=== PATIENT | male | born 1965 | race Caucasian/White ===

== ENCOUNTER 2023-08-11 13:58 | Outpatient (RCR) | payer OTHER, SELFPAY | END 2023-08-11 23:59 | disposition home or self-care (01) | LOC: RPT 13:58 | PROVIDERS: ATTENDING PHYSICIAN Physician Assistant Surgical; PRIMARYCARE PHYSICIAN Internal Medicine | DX: M25.511 Pain in right shoulder (principal); Z73.6 Limitation of activities due to disability | CPT/HCPCS: 97010; 97110; 97140 ==

== ENCOUNTER 2023-08-21 13:16 | Outpatient (RCR) | payer OTHER, SELFPAY | END 2023-08-21 23:59 | disposition home or self-care (01) | LOC: RPT 13:16 | PROVIDERS: ATTENDING PHYSICIAN Physician Assistant Surgical; PRIMARYCARE PHYSICIAN Internal Medicine | DX: Z47.1 Aftercare following joint replacement surgery (principal); M25.511 Pain in right shoulder; Z73.6 Limitation of activities due to disability; M62.81 Muscle weakness (generalized); R20.0 Anesthesia of skin; Z96.611 Presence of right artificial shoulder joint | CPT/HCPCS: 97010; 97110; 97140 ==